=== PATIENT | female | born 1980 | race Caucasian/White ===

== ENCOUNTER 2020-12-25 11:56 | Emergency (ER) | payer OTHER ==
[~2020-12-25] VITALS: Ht 162.6 cm; Wt 65.8 kg
[~2020-12-25 11:56] MED LIST: NORCO 5-325 TA1 EACH PO
[2020-12-25 12:37] LABS: CALCIUM 8.8 mg/dL (8.5-10.1); CREATININE 1.2 mg/dL (0.6-1.3); POTASSIUM 4.3 mmol/L (3.5-5.1)
[2020-12-25] MEDS ORDERED: BACTRIM DS TAB1 EAC1 PO (14:34)
[2020-12-25] MEDS ORDERED: CEPHALEXIN500 MG PO (14:34)
[2020-12-25 14:50] VITALS: BP 136/100
== END 2020-12-25 14:50 ==
LOC: M.ERS 11:56
PROVIDERS: Emergency Medicine Emergency Medical Services
DX: L03.111 Cellulitis of right axilla (principal); L03.213 Periorbital cellulitis; Z88.8 Allergy status to other drugs, medicaments and biological substances